=== PATIENT | female | born 1970 | race Caucasian/White ===

== ENCOUNTER 2016-10-12 13:32 | Emergency (ER) | payer BC ==
[~2016-10-12] VITALS: Ht 160 cm; Wt 70.8 kg
[~2016-10-12 13:32] MED LIST: Motrin PO; Percocet 5/325,Endoc PO
[2016-10-12 14:59] LABS: MCH 26.9 PG (29.0-34.0); MCHC 32.5 G/DL (30.0-36.0); MCV 82.9 FL (83-99); MEAN PLAT.VOLUME 11.6 uM^3 (9.5-12.4); PLATELET COUNT 207 K/uL (156-360); RBC DIS.WIDTH-CV 13.6 % (11.8-14.6); RBC DIS.WIDTH-SD 40.7 % (39-53); RED BLOOD COUNT 5.31 M/uL (3.80-5.20); WHITE BLOOD COUNT 6.9 K/uL (4.1-10.2)
[2016-10-12 15:02] LABS: ADD MIUA? YES; BILIRUBIN NEGATIVE; BLOOD NEGATIVE; COLOR YELLOW ((YELLOW)); GLUCOSE (STRIP) NEGATIVE; KETONES NEGATIVE; LEUKOCYTES TRACE; NITRITE NEGATIVE; PROTEIN (STRIP) NEGATIVE; SPECIFIC GRAVITY 1.018 (1.000-1.030); UROBILINOGEN 0.2 MG/DL (0.2-1.0)
[2016-10-12 15:09] LABS: CHLORIDE 107 mEq/L (99-109); POTASSIUM 4.3 mEq/L (3.7-5.4); SODIUM 141 mEq/L (136-147)
[2016-10-12 15:11] LABS: GLUCOSE 93 mg/dL (70-99)
[2016-10-12 15:12] LABS: BACTERIA NONE SEEN /HPF; EPITHELIAL CELLS RARE /HPF; MUCUS TRACE /LPF; RED BLOOD CELLS 0-5 /HPF (0-5); UCUL ADDED? NO; WHITE BLOOD CELLS 0-5 /HPF (0-5)
[2016-10-12 15:12] LABS: ANION GAP 10 MEQ/L (2-14)
[2016-10-12 15:13] LABS: TOTAL BILIRUBIN 0.4 mg/dL (0.0-1.0)
[2016-10-12 15:15] LABS: ALKALINE PHOSPHATASE 89 IU/L (3-129); GFR ESTIMATE (CALCULATED) > 59 mL/min/
[2016-10-12 15:16] LABS: UREA NITROGEN (BUN) 13 mg/dL (9-23)
[2016-10-12 15:18] LABS: LIPASE 19 U/L (1.0-51.0)
[2016-10-12 15:24] LABS: QUANTITATIVE HCG < 4.0 MIU/ML
[2016-10-12 15:57] LABS: INFLUENZA A VIRAL ANTIGEN NEGATIVE; INFLUENZA B VIRAL ANTIGEN NEGATIVE
[2016-10-12 20:26] VITALS: BP 108/65
== END 2016-10-12 20:28 | disposition home or self-care (01) ==
LOC: EME 13:32
PROVIDERS: Nurse Practitioner Family
DX: R10.9 Unspecified abdominal pain (principal); R52 Pain, unspecified; J06.9 Acute upper respiratory infection, unspecified
CPT/HCPCS: 74177; 80053; 81003; 83690; 84702; 85027; 87502; 99281; 99285; J1885; J2270; J2405